=== PATIENT | female | born 1940 | race Caucasian/White ===

== ENCOUNTER → 2018-02-10 | Outpatient (CLI) | payer OTHER, BC ==
[~2018-02-10] MED LIST: ASPIR 8181 M1 PO; LEVOTHYROXINE75 MCG PO; LOSARTAN POTASS25 MG PO; NEXIUM40 MG PO; SIMVASTATIN40 MG PO
== END | disposition home or self-care (01) ==
LOC: AMB 14:00
DX: L72.3 Sebaceous cyst (principal); L91.8 Other hypertrophic disorders of the skin